=== PATIENT | male | born 1955 | race Caucasian/White ===

== ENCOUNTER 2022-10-30 07:27 | Day surgery (SDC) | payer OTHER, SELFPAY ==
[2022-08-28 11:50] VITALS: BMI 26.3
[2022-10-24 08:55] VITALS: BMI 26.3
[2022-10-30 08:15] VITALS: BMI 25.2
[2022-10-30 08:19] VITALS: BP 141/80; PULSE 66; RESP 16; TEMP 36.6; O2SAT 98
--- NOTE | 2022-10-30 08:25 | P.PNAN_ITS ---
Anes - Initial Pre Proc Eval Procedure: Operation Date: 10/30/22 09:30 Proposed Procedures p Screening Colonoscopy - Layo Babb MD Date/Time: 10/30/22 08:25 Surgeon: Layo Babb MD Pre Op Diagnosis: Neoplasm Screening Patient Data Age: 67 Gender: M Height: 1.68 m Weight: 71 kg Last Vital Signs Temp 36.6 C 10/30/22 08:19 Pulse 66 10/30/22 08:19 Resp 16 10/30/22 08:19 BP 141/80 H 10/30/22 08:19 Pulse Ox 98 10/30/22 08:19 Allergies Allergy/AdvReac Type Severity Reaction Status Date / Time No Known Allergies Allergy Verified 10/30/22 08:12 Home Medications Medication Instructions Recorded Confirmed Type lancets 33 gauge (BD Ultra Fine 02/20/22 08/11/22 History Lancets) amlodipine 5 mg tablet 5 mg PO DAILY 90 days #90 tabs 08/11/22 10/30/22 Rx lisinopril 40 mg tablet 40 mg PO DAILY #90 tabs 08/11/22 10/30/22 Rx metformin 500 mg tablet,extended 1,000 mg PO BID #360 tabs 08/11/22 10/30/22 Rx release 24 hr sodium,potassium,mag sulfates 17.5 See Rx Instructions PO .COMPLEX 08/28/22 10/24/22 Rx gram-3.13 gram-1.6 gram oral soln #354 mL (Suprep Bowel Prep Kit) blood sugar diagnostic (Contour #200 ea 09/05/22 Rx Next Test Strips) blood-glucose meter (Contour Next #1 ea 09/06/22 Rx Meter) Patient hx anesthesia problems: none Family hx anesthesia problems: none Results Review: All pre-operative results and documents have been reviewed as part of the pre- operative evaluation. [facility] Past Medical History Medical History Diabetes mellitus HTN (hypertension) Social History Social History (Updated 08/11/22 @ 15:45 by Darlyn Pichardo) Smoking status: Never smoker Alcohol intake: never Substance use: never Substance use type: does not use Lack of Transportation: No Lack of Food: Never True Current Housing: I Have Housing Concerned About Future Housing: No Difficulty Paying Gas/Electric Bills: No Difficulty Paying for Meds: No Currently Unemployed: No Difficulty w/ Childcare or Family Care: No Living arrangements: with family Occupation/Education: occupation Gender identity (if verbalized by the patient): Male Sexual Orientation (if Verbalized by the Patient): Straight or Heterosexual Spiritual care concerns: No Anes - Eval Final PreProcedure Day of Procedure 10/30/22 08:25 Patient weight: normal Heart: regular rate and rhythm Lungs: clear to auscultation and normal air movement Airway: Mallampati scale class II Neurological: alert and oriented Last oral intake: >/= 8 hours ASA classification: III Emergent: no Anesthetic plan: proceed Anesthesia type and monitoring: general GIVS Results Review: All pre-operative results and documents have been reviewed as part of the pre- operative evaluation. Informed Consent: The patient's anesthetic plan and its attendant risks and benefits were discussed with the patient/family/POA. Questions were solicited and answers provided to the satisfaction of the patient/family/POA.
--- NOTE | 2022-10-30 08:27 | PM.HPGS ---
History of Present Illness History of Present Illness Consent: Risks, benefits, and alternatives have been discussed and questions answered. Patient agrees to proceed with procedure. Chief complaint: Neoplasm Screening Narrative: Ramsey Oscar is a 67 year old male Presents for screening colonoscopy. Patient's current weight appetite and bowel movements are normal. Patient denies abdominal pain. He has had no bleeding. Previous colonoscopy 2016 revealed a benign adenomatous colon polyps. Patient presents today for neoplasia screening. Family history is noncontributory. Review of Systems Review of Systems: Review of systems noncontributory. [facility] Past Medical History Medical History Diabetes mellitus HTN (hypertension) Social History Social History (Updated 08/11/22 @ 15:45 by Darlyn Pichardo) Smoking status: Never smoker Alcohol intake: never Substance use: never Substance use type: does not use Lack of Transportation: No Lack of Food: Never True Current Housing: I Have Housing Concerned About Future Housing: No Difficulty Paying Gas/Electric Bills: No Difficulty Paying for Meds: No Currently Unemployed: No Difficulty w/ Childcare or Family Care: No Living arrangements: with family Occupation/Education: occupation Gender identity (if verbalized by the patient): Male Sexual Orientation (if Verbalized by the Patient): Straight or Heterosexual Spiritual care concerns: No Meds Home Medications and Allergies Home Medications Medication Instructions Recorded Confirmed Type lancets 33 gauge (BD Ultra Fine 02/20/22 08/11/22 History Lancets) amlodipine 5 mg tablet 5 mg PO DAILY 90 days #90 tabs 08/11/22 10/30/22 Rx lisinopril 40 mg tablet 40 mg PO DAILY #90 tabs 08/11/22 10/30/22 Rx metformin 500 mg tablet,extended 1,000 mg PO BID #360 tabs 08/11/22 10/30/22 Rx release 24 hr sodium,potassium,mag sulfates 17.5 See Rx Instructions PO .COMPLEX 08/28/22 10/24/22 Rx gram-3.13 gram-1.6 gram oral soln #354 mL (Suprep Bowel Prep Kit) blood sugar diagnostic (Contour #200 ea 09/05/22 Rx Next Test Strips) blood-glucose meter (Contour Next #1 ea 09/06/22 Rx Meter) Allergies Allergy/AdvReac Type Severity Reaction Status Date / Time No Known Allergies Allergy Verified 10/30/22 08:12 Vital Signs Vital Signs - 24 hr 10/30/22 08:19 Temperature 97.9 F Pulse Rate 66 Respiratory Rate 16 Blood Pressure 141/80 H Pulse Oximetry 98 Exam Narrative: Physical exam reveals patient to be alert. Vital signs stable. HEENT exam is unremarkable. Patient is anicteric. Lungs are clear to auscultation and percussion. Heart is without murmur or extra sounds. Abdomen bowel sounds are present soft nontender with no organomegaly. Digital external rectal exam is normal. Assessment and Plan Assessment and plan (1) History of colon polyps: Code(s): Z86.010 - Personal history of colonic polyps Status: Acute Assessment and Plan: Patient has a history of adenomatous colon polyp removed in colon in 2017. Plan for surveillance colonoscopy now, consider this at 5 year intervals.
[2022-10-30 08:41] LABS: Glucose Point of Care 105 mg/dl (65-105)
[2022-10-30] MEDS: LACTATED RINGERS 1,000 ML 150 ML IV CONT (08:59)
[2022-10-30 09:55] VITALS: BP 91/55; PULSE 50; RESP 16; O2SAT 97
[2022-10-30 10:05] VITALS: BP 102/66; PULSE 52; RESP 18; O2SAT 98
[2022-10-30 10:15] VITALS: BP 117/71; PULSE 51; RESP 18; O2SAT 100
[2022-10-30 10:25] VITALS: BP 126/70; PULSE 55; RESP 20; O2SAT 100
--- NOTE | 2022-10-30 10:55 | WPDANESPN ---
Anes - Prog Note Post-Op Date/Time: 10/30/22 10:55 Cardiovascular status: normal Respiratory status: normal Airway patency: baseline Mental status: baseline Post-Op hydration status: normal Vital Signs: Last Vital Signs Temp 36.6 C 10/30/22 08:19 Pulse 55 L 10/30/22 10:25 Resp 20 10/30/22 10:25 BP 126/70 10/30/22 10:25 Pulse Ox 100 10/30/22 10:25 O2 Del Method Room Air 10/30/22 10:25 Pain Score (VAS): 0 I/O: Intake & Output 10/29/22 10/30/22 10/30/22 23:59 07:59 15:59 Intake Total 500 Balance 500 10/30/22 08:39 POC Capillary Glucose 105 Post-procedural complaints: none Patient Feedback: Patient satisfied with anesthetic care.
== END 2022-10-30 10:40 | disposition home or self-care (01) ==
PROVIDERS: PCP Physician Assistant Medical; Visit Provider Internal Medicine Gastroenterology
PROC: 0DJD8ZZ Inspection of Lower Intestinal Tract, Via Natural or Artificial Opening Endoscopic (ICD-10-PCS; CPT 45378; principal; 2022-10-30 09:30)
DX: Z86.010 Personal history of colon polyps (principal)
CPT/HCPCS: 45378